=== PATIENT | male | born 1995 | race Caucasian/White ===

== ENCOUNTER 2021-07-20 12:36 | Outpatient (REF) | payer MEDICAID, SELFPAY ==
--- NOTE | 2021-07-20 13:02 | EEG_ITS ---
This is a 16-channel EEG with an EKG lead. The patient is reported awake during the tracing. Background EEG rhythm is about 10 hertz 5 to 20 microvolt posteriorly, lower amplitude fast anteriorly. Photic stimulation does not produce any significant driving. Hyperventilation is not performed. Cardiac lead does not reveal any significant abnormality. No sharp wave spikes or paroxysmal tendency noted. IMPRESSION: Unremarkable EEG. MD LOTTIE Mace/RYAN / [id number]
== END 2021-07-20 12:37 | disposition home or self-care (01) ==
LOC: HO.NEURO 12:36
PROVIDERS: Visit Provider Hospitalist
DX: G93.1 Anoxic brain damage, not elsewhere classified (principal)
CPT/HCPCS: 95816